=== PATIENT | female | born 1930 | race Caucasian/White ===

== ENCOUNTER 2017-10-04 07:09 | Day surgery (SDC) | payer OTHER ==
[~2017-10-04] VITALS: Ht 149.9 cm; Wt 63.5 kg
[~2017-10-04 07:09] MED LIST: CRESTOR10 MG PO; CYMBALTA60 MG PO; DETROL LA4 MG PO; LO-DOSE ASPIRIN81 M1 PO; OMEPRAZOLE40 M1 PO; PLAVIX75 MG PO; SPIRIVA1 INHALATI IH; SYMBICORT60 INHALAT IH; SYNTHROID75 MCG PO; ZANTAC75 M1 PO
[2017-10-04 07:55] VITALS: BP 174/82
[2017-10-04 11:01] VITALS: BP 130/65
[2017-10-04 11:22] VITALS: BP 144/75
== END 2017-10-04 11:22 | disposition home or self-care (01) ==
LOC: SDC 07:09
DX: H35.371 Puckering of macula, right eye (principal); H35.341 Macular cyst, hole, or pseudohole, right eye; K21.9 Gastro-esophageal reflux disease without esophagitis; E03.9 Hypothyroidism, unspecified; J44.9 Chronic obstructive pulmonary disease, unspecified; G47.33 Obstructive sleep apnea (adult) (pediatric); Z86.73 Personal history of transient ischemic attack (TIA), and cerebral infarction without residual deficits; Z79.02 Long term (current) use of antithrombotics/antiplatelets
CPT/HCPCS: J0690; J1100; J2405; J2795; J3300